=== PATIENT | male | born 1975 | race Caucasian/White ===

== ENCOUNTER → 2022-12-24 | Outpatient (CLI) | payer SELFPAY, OTHER ==
--- NOTE | 2022-12-24 17:33 | MRI_ITS ---
INDICATION: Low back pain and burning in both legs. EXAMINATION: MRI - MR Spine Lumbar W/O Contrast TECHNIQUE: Multiplanar and multisequence MR images of the lumbar spine. IV Contrast Dosage and Agent: None. COMPARISON: Radiographs 12/16/2022. FINDINGS: Mild chronic anterior wedging of T12. Mild left scoliosis centered at L2. No acute fracture or acute osseous abnormality. Sagittal alignment anatomic. Conus terminates at the level of the mid L2 vertebral body with normal contour and signal. At T12-L1, broad-based disc bulge and mild facet degeneration causes only mild narrowing. At L1-2, large diffuse disc bulge, greater on the right, and moderate bilateral facet degeneration causes moderate narrowing of the right subarticular zone, displacing posteriorly traversing right L2 nerve roots. No significant foraminal narrowing. At L2-3, moderate diffuse disc bulge with central extrusion with inferior migration along the posterior, central aspect of the L3 vertebral body and severe bilateral facet degeneration with degenerative buckling of the ligamentum flavum causes moderate spinal canal narrowing with crowding but not compression of the cauda equina, and moderate right and mild left foraminal narrowing. Disc abuts but does not compress the exiting right L2 nerve root in the right foramen. At L3-4, small diffuse disc bulge and moderate bilateral facet degeneration causes only mild narrowing. At L4-5, moderate diffuse disc bulge and moderate bilateral facet degeneration causes slightly more prominent but still mild narrowing of the spinal canal and foramina. Disc abuts but does not compress the traversing bilateral L5 nerve roots. At L5-S1, diffuse disc bulge with central protrusion and mild bilateral facet degeneration causes only mild narrowing. The paraspinal soft tissues are unremarkable. MRI/Spine Lumbar (Routine) IMPRESSION: Extensive degenerative changes outlined in detail above. While there is no high-grade narrowing of the spinal canal or foramina, potential sources of radiculopathy include: -the right subarticular zone of L1-2 and right foramen of L2-3 (both involving the right L2 nerve root). -The bilateral subarticular zones of L4-5 (both L5 nerve roots). Electronically Signed: Lokesh Fong MD at 5:22 EST Reading Location ID and State: [id number] MD Tel , Service support ,
== END | disposition home or self-care (01) ==
LOC: MRI 17:33
PROVIDERS: Visit Provider Orthopaedic Surgery
DX: M51.26 Other intervertebral disc displacement, lumbar region (principal)
CPT/HCPCS: 72148

== ENCOUNTER → 2023-06-19 | Outpatient (CLI) | payer SELFPAY, OTHER ==
--- NOTE | 2023-06-19 08:11 | MRI_ITS ---
STUDY: MRI THORACIC SPINE WITHOUT CONTRAST REASON FOR EXAM: Male, 47 years old. pain in lower thoracic spine TECHNIQUE: Standardized fat and water weighted pulse sequences were obtained in the sagittal and axial planes. COMPARISON: None. FINDINGS: Normal kyphosis of the thoracic spine. There is no substantial scoliosis. Mild loss of height wedging deformity of the T12 vertebral body without marrow edema consistent with a chronic mild wedge compression fracture. No retropulsion into the spinal canal. T1-2, T2-3, T3-4, T4-5, T5-6, T6-7, T7-8, T8-9, T9-10, T10-11, T11-12: A T1/T2 there is a mild bilobed disc protrusion which produces mild spinal stenosis. At T5/T6 there is a mild bilobed disc protrusion which produces mild spinal stenosis. At T10/T11 there is a mild bilobed disc protrusion which produces mild spinal stenosis. Normal visualized thoracic cord. Normal conus medullaris that terminates at the L1.. The soft tissue structures are unremarkable. MRI/Spine Thoracic (Routine) IMPRESSION: 1. Chronic mild wedge compression fracture of T12 without retropulsion into the spinal canal. 2. Mild degenerative disc disease but no cord compression. Electronically Signed: Saran Krause MD at 20:14 EDT ,
== END | disposition home or self-care (01) ==
PROVIDERS: Referring Provider Orthopaedic Surgery; Visit Provider Orthopaedic Surgery
DX: S22.089A Unspecified fracture of T11-T12 vertebra, initial encounter for closed fracture (principal)
CPT/HCPCS: 72146

== ENCOUNTER 2023-07-17 09:13 | Emergency (ER) | payer OTHER, SELFPAY ==
[2023-07-17 09:14] VITALS: BP 115/88; PULSE 88; RESP 14; TEMP 36.6; O2SAT 95
--- NOTE | 2023-07-17 09:24 | RAD_ITS ---
INDICATION: Injury/Pain EXAMINATION/TECHNIQUE: X-RAY - LEFT XR Femur Min 2 Views 4 VIEWS COMPARISON: FINDINGS: SOFT TISSUES: No soft tissue swelling or gas. No radiopaque foreign body. BONES/JOINTS: No acute fracture or subluxation.. Normal alignment. Mild osteoarthritis of the medial and lateral compartments. No sclerotic or destructive changes observed. RAD/Femur Min 2 Views IMPRESSION: Mild osteoarthritis of the left knee. Remainder of femur intact. Electronically Signed: Alonso Lam MD, [facility] at 10:38 EDT ,
--- NOTE | 2023-07-17 09:25 | ED.VIS.LOWEX ---
HPI History of Present Illness HPI Narrative: Patient presents with pain in his left thigh that occurred last night. Patient states he had an accident with his horse last night. Patient states he has had pain in his left thigh since the accident. Patient states he put his left leg out to stop him. Patient states his pain is worse with movement. Patient describes his pain as burning. Patient denies any paresthesias or weakness. Patient denies any head injury or loss of consciousness. Patient denies any other injuries. Chief Complaint: Lower Extremity Injury Informant: patient Onset/Context/Timing Onset: Yesterday Context: Sudden Onset Timing: Continuous Quality of Pain: Burning Location: Left thigh Associated Symptoms Associated Symptoms: Negative for Parasthesia or Weakness PFSH [facility] Medical History Hx of compression fracture of spine T12 compression fracture T12 vertebral fracture Home Medications methylprednisolone 4 mg tablets in a dose pack (Medrol ([place])) 4 mg PO DAILY 6 days #6 tabs 07/12/23 [Rx Last Taken Unknown] Allergy/AdvReac Type Severity Reaction Status Date / Time No Known Allergies Allergy Verified 07/17/23 09:13 Surgical History Hx of cervical spine surgery Social History Smoking Status: Former smoker alcohol intake: never substance use type: does not use ROS ROS ED Constitutional Constitutional ED: Denies chills or fever(s) Eyes Eyes: Denies blurry vision or change in vision ENT ENT ED: Denies rhinorrhea or sore throat Cardiovascular Cardiovascular: Denies chest pain or palpitations Respiratory/Chest Respiratory/Chest: Denies cough or dyspnea Gastrointestinal Gastrointestinal: Denies nausea or vomiting Genitourinary Genitourinary ED: Denies dysuria or hematuria Musculoskeletal Musculoskeletal: Reports back pain; Denies neck pain Integumentary Denies abscess or rash Neurologic Neurologic: Denies headache(s) or weakness Allergic/Immunologic Allergic/Immunologic ED: Denies mouth swelling or urticaria EXAM Physical Exam Const Vital Signs: 07/17/23 09:14 Temperature 98 F Temperature Source Temporal Pulse Rate 88 Respiratory Rate 14 Blood Pressure 115/88 H Blood Pressure Mean 97 Pulse Ox 95 Oxygen Delivery Method Room Air Positive well nourished and well developed General Appearance ED: well developed HEENT Reports moist mucous membranes Neck full ROM and supple Extremity Extremity Narrative: There is tenderness over the left mid thigh. There is no bony crepitance or step-off. Range of motion was limited in all motions of the left thigh and hip secondary to pain. There is no tenderness over the left knee. Extensor mechanism is intact. Sensation was intact to light touch bilaterally in the lower extremities. Strength is 5/5 bilaterally in the lower extremities. Pedal pulses are equal bilaterally. General Extremety ED: Yes weight-bearing difficulty General Extremity: weight-bearing difficulty Neuro oriented x3, CN's II-XII intact bilaterally, moves all extremities and no sensory deficits noted Sensorium / Orientation: alert Motor Exam: strength 5/5 throughout Psych mental status grossly normal MDM MDM MDM Narrative Medical decision making narrative: Differential diagnosis includes contusion, fracture, and sprain. X-rays of the left femur will be obtained to assess for fracture. Radiography Diagnostic Testing: Clinical Impression(s) from Imaging Studies Femur X-Ray 07/17/23 09:24 IMPRESSION: Mild osteoarthritis of the left knee. Remainder of femur intact. Electronically Signed: Alonso Lam MD, [facility] at 10:38 EDT , X-rays of the left femur were obtained. There are 4 views. On my independent interpretation, there is no acute fracture or soft tissue swelling. Radiologist also interpreted the x-rays and noted some mild osteoarthritis of the left knee but otherwise agrees with my interpretation. Treatment and Re-Evaluation Narrative: On reevaluation, patient is feeling slightly better. Patient is able to lift his leg off of the ground and hold it up. Patient was advised of his findings. Patient was instructed to use ice to the area. Patient was instructed to take Tylenol or ibuprofen as needed for pain. Patient was instructed to follow-up with his primary care physician in 5 to 7 days. Patient understood and was agreeable with the plan. All questions were answered. Discharge Plan Triage Chief Complaint: Lower Extremity Injury ED Provider: Rusty Chandra Dx/Rx/DC Orders Clinical Impression: Contusion of left thigh, initial encounter Instructions: ED Contusion, Lower Extremity Prescriptions: No Action methylprednisolone [Medrol ([place])] 4 mg tablets,dose pack 4 mg PO DAILY 6 Days Qty: 6 0RF Primary Care Provider: Care Physician,No Primary Referrals: Laron Lockhart DO [Non-Staff] - 5-7 Days Care Physician,No Primary [Primary Care Provider] - Disposition Disposition: Home, Self Care
== END 2023-07-17 11:10 | disposition home or self-care (01) ==
PROVIDERS: Emergency Provider Emergency Medicine; Visit Provider Emergency Medicine
DX: S70.12XA Contusion of left thigh, initial encounter (principal); Z87.891 Personal history of nicotine dependence; X58.XXXA Exposure to other specified factors, initial encounter
CPT/HCPCS: 73552; 99282